=== PATIENT | male | born 1995 | race Caucasian/White ===

== ENCOUNTER 2022-02-24 14:16 | Emergency (ER) | payer BC, SELFPAY ==
[2022-02-24 14:17] VITALS: BP 151/81; PULSE 66; RESP 18; TEMP 36.9; O2SAT 98; BMI 21.7
--- NOTE | 2022-02-24 14:36 | NURSING ---
NO OLD EKGS
--- NOTE | 2022-02-24 14:55 | EKG12_ITS ---
Test Reason : CP Blood Pressure : / mmHG Vent. Rate : 061 BPM Atrial Rate : 061 BPM P-R Int : 134 ms QRS Dur : 094 ms QT Int : 392 ms P-R-T Axes : -35 064 057 degrees QTc Int : 394 ms Unusual P axis, possible ectopic atrial rhythm Abnormal ECG Confirmed by MEDHAT MUNIZ, FARHAN ([id number]), editorial clerk REGIS CHRISTIANSON ([id number]) on 02/25/2022 8:53:10 AM Referred By: TADEO Confirmed By:FARHAN MELÉNDEZ MD
--- NOTE | 2022-02-24 14:59 | RAD_ITS ---
STUDY: X-RAY CHEST REASON FOR EXAM: Male, 26 years old. Chest pain TECHNIQUE: Single AP portable view of the chest. COMPARISON: None. FINDINGS: EKG electrodes are seen. The lungs are clear and expanded. There is no demonstrated pleural abnormality. Normal size heart. Normal mediastinum and marlys. Normal visualized pulmonary arteries. Normal visualized aortic arch and descending thoracic aorta. Normal visualized thoracic spine. Normal visualized ribs, clavicles, and shoulders. There is no demonstrated abnormality of the visualized soft tissue structures of the upper abdomen. RAD/Chest 1 View (Portable) IMPRESSION: Normal x-ray examination of the chest. Electronically Signed: Landon Duran MD at 15:21 EDT ,
[2022-02-24] MEDS: 0.9% Normal Saline 1,000 ML 150 ML IV (15:03)
[2022-02-24] MEDS: Ketorolac 30 MG/ML Syringe IV (15:03)
[2022-02-24 15:09] LABS: Absolute Neutrophil Count 2.4 X10^3/uL (2.0-7.7); Basophil# 0.02 X10^3/uL; Basophil% 0.5 % (0-1); Eosinophil# 0.11 X10^3/uL; Eosinophils% 2.8 % (0-5); Hematocrit 39.4 % (40-54); Hemoglobin 14.3 g/dL (13.0-16.5); Lymphocyte % 27.7 % (19-41); Mean Corp Hgb Conc 36.3 g/dL (32-36); Mean Corpuscular Volume 79.9 fL (80-94); Mean Platelet Vol. 9.9 fl (6.2-12.0); Monocyte# 0.27 X10^3/uL; Monocyte% 6.8 % (0-10); NRBC Flagged by Analyzer 0 % (0-5); Neutrophil # 2.44 X10^3/uL (2.7-7.7); Neutrophil % 61.4 % (47-70); Platelet Count 202 K/mm3 (150-450); RBC Distribution Width CV 12.7 % (11.6-14.6); Red Blood Count 4.93 M/mm3 (4.6-6.2)
[2022-02-24 15:21] VITALS: BP 125/71; PULSE 63; RESP 16; O2SAT 98
[2022-02-24 15:26] LABS: Anion Gap 8 (5-15); BUN 14 mg/dL (7-18); BUN/Creat Ratio 14.3 RATIO (10-20); Chloride 106 mmol/L (98-107); Creatinine, Serum 0.98 mg/dL (0.70-1.30); EST Glomerular Filtration Rate 99 mL/min (>60); Est Glom Filt Rate - Afr Amer 120 mL/min (>60); Estimated Creatinine Clearance 119.31 ml/min; Glucose 130 mg/dL (74-106); Potassium 3.6 mmol/L (3.5-5.1); Sodium Level 138 mmol/L (136-145); Troponin-I HS 3 pg/mL (3.0-78.0)
--- NOTE | 2022-02-24 15:40 | ED.VIS.CHEST ---
HPI History of Present Illness Chief Complaint: Chest Pain Informant: patient Onset/Context/Timing Onset: Today Activity at onset: sudden Quality: Positive for Stabbing Location: - (Diffusely over chest) Current Severity: Mild Maximum Severity: Moderate Associated Symptoms: Positive for Dyspnea Narrative Prior Similar Symptoms: No PE Risk Factors: Negative for Recent Travel/Surgery, Recent Immobilization, Prior DVT or PE and Cancer PFSH PFSH Medical History no medical history no medical history Home Medications NK 02/24/22 [History Last Taken Unknown] Allergy/AdvReac Type Severity Reaction Status Date / Time No Known Allergies Allergy Verified 02/24/22 14:20 Surgical History no surgical history Social History Smoking Status: Never smoker ROS ROS ED Constitutional Constitutional ED: Denies chills or fever(s) Eyes Eyes: Denies change in vision ENT ENT ED: Denies sore throat Cardiovascular Cardiovascular: Reports chest pain Respiratory/Chest Respiratory/Chest: Reports dyspnea; Denies cough Gastrointestinal Gastrointestinal: Denies abdominal pain, nausea or vomiting Musculoskeletal Musculoskeletal: Denies back pain or neck pain Integumentary Denies rash Neurologic Neurologic: Denies headache(s) or weakness Allergic/Immunologic Allergic/Immunologic ED: Denies urticaria EXAM Physical Exam Const Vital Signs: 02/24/22 14:17 02/24/22 15:21 02/24/22 16:07 Temperature 98.4 F Temperature Source Oral Pulse Rate 66 63 64 Respiratory Rate 18 16 16 Blood Pressure 151/81 H 125/71 H 130/51 H Blood Pressure Mean 104 89 77 Pulse Ox 98 98 99 Oxygen Delivery Method Room Air Room Air Room Air Positive well nourished and well developed General Appearance ED: well developed HEENT normocephalic and atraumatic Eyes PERRL and EOMs intact bilaterally Chest Wall inspection of chest normal and palpation of chest normal Resp normal respiratory effort Effort and Inspection: respiratory distress Cardio regular rate and regular rhythm GI soft to palpation and non-tender Extremity normal to inspection Neuro oriented x3 Sensorium / Orientation: awake and alert Psych mental status grossly normal Skin no rashes or lesions noted Heart Score History: Slightly/Non-Suspicious ECG: Normal Age: </= 45 years Risk Factors: No Risk Factors Troponin: </= Normal Limit Score: 0 MDM MDM MDM Narrative Medical decision making narrative: Patient placed on director of cardiac rehabilitation. EKG, chest x-ray, lab work obtained. Lab Data Attestation: I reviewed the patient's lab results. Labs: Laboratory Results - last 24 hr 02/24/22 02/24/22 02/24/22 14:30 14:55 15:50 WBC 4.0 L RBC 4.93 Hgb 14.3 Hct 39.4 L MCV 79.9 L MCH 29.0 MCHC 36.3 H RDW Std Deviation 36.0 RDW Coeff of Len 12.7 Plt Count 202 MPV 9.9 Immature Gran % (Auto) 0.800 Neut % (Auto) 61.4 Lymph % (Auto) 27.7 Terry % (Auto) 6.8 Eos % (Auto) 2.8 Baso % (Auto) 0.5 Absolute Neuts (auto) 2.4 Absolute Lymphs (auto) 1.10 Nucleated RBC % 0 D-Dimer Quant (PE/DVT) < 0.27 L Sodium 138 Potassium 3.6 Chloride 106 Carbon Dioxide 24.0 Anion Gap 8 BUN 14 Creatinine 0.98 Estim Creat Clear Calc 119.31 Est GFR (MDRD) Af Amer 120 Est GFR (MDRD) Non-Af 99 BUN/Creatinine Ratio 14.3 Glucose 130 H Calcium 9.0 Troponin I High Sens 3 Radiography Chest X-Ray - ED: 1 View, Read by ED Physician, Normal, Heart, Lungs and Mediastinum Diagnostic Testing: Clinical Impression(s) from Imaging Studies Chest X-Ray 02/24/22 14:59 IMPRESSION: Normal x-ray examination of the chest. Electronically Signed: Landon Duran MD at 15:21 EDT , EKG Initial EKG: Attestation: I personally reviewed and interpreted this EKG as follows: Interpretation: Sinus Rhythm (Sinus at 61. No acute ischemia.) Treatment and Re-Evaluation Narrative: Patient was lying at rest with onset of pain. Chest x-ray reveals no evidence of pneumothorax or acute finding. EKG reveals no ischemia. Lab work normal including troponin and D-dimer. Patient was treated with Toradol for pain. Test results discussed with him. At this time patient will be discharged home to continue supportive care. Return instructions provided. Discharge Plan Triage Chief Complaint: Chest Pain ED Provider: Lorie Tang Dx/Rx/DC Orders Clinical Impression: Atypical chest pain Instructions: ED Chest Pain, Noncardiac Prescriptions: No Action NK RF: 0 Primary Care Provider: Care Physician,No Primary Referrals: Tameka Donahue MD [STAFF PHYSICIAN] - 1-2 Weeks Care Physician,No Primary [Primary Care Provider] - Disposition Disposition: Home, Self Care
[2022-02-24 16:07] VITALS: BP 130/51; PULSE 64; RESP 16; O2SAT 99
--- NOTE | 2022-02-24 16:09 | CM.ED ---
SW Note Referral Source: Case Find Referral Reason: No PCP SW noted patient had no PCP. SW provided patient with [facility] Directory and encouraged them to follow up for a PCP. No other issues or questions voiced. SW remains available if needs arise. Plan: Resources provided Mela RIVERA
[2022-02-24 16:32] LABS: D-Dimer Quantitative (DVT/PE) < 0.27 FEU/ug/m (0.27-0.49)
== END 2022-02-24 16:52 | disposition home or self-care (01) ==
PROVIDERS: Emergency Provider Emergency Medicine; Visit Provider Emergency Medicine
DX: R07.89 Other chest pain (principal); R06.00 Dyspnea, unspecified
CPT/HCPCS: 71045; 80048; 84484; 85025; 85379; 93005; 96361; 96374; 99282; A4216

== ENCOUNTER 2024-07-01 23:23 | Emergency (ER) | payer BC, SELFPAY ==
[2024-07-01 23:23] VITALS: BP 156/84; PULSE 85; RESP 19; TEMP 37.1; O2SAT 97
--- NOTE | 2024-07-01 23:51 | EKG12_ITS ---
Test Reason : CP Blood Pressure : / mmHG Vent. Rate : 074 BPM Atrial Rate : 074 BPM P-R Int : 142 ms QRS Dur : 090 ms QT Int : 384 ms P-R-T Axes : -26 036 043 degrees QTc Int : 426 ms Normal sinus rhythm Normal ECG Confirmed by Carlitos Subramanian ([id number]), editor index KIRK MEDINA ([id number]) on 07/03/2024 9:37:59 AM Referred By: JASMINA Confirmed By:Carlitos Subramanian
--- NOTE | 2024-07-01 23:59 | RAD_ITS ---
EXAM: XR CHEST, 2 VIEWS CLINICAL INDICATION: chest pain TECHNIQUE: Frontal and lateral views of the chest. COMPARISON: 02/24/2022. FINDINGS: LUNGS AND PLEURAL SPACES: Unremarkable. No consolidation or edema. No pneumothorax. No effusion. HEART: Unremarkable. Cardiac silhouette not enlarged. MEDIASTINUM: Central airways and mediastinal contour are unremarkable. BONES/JOINTS: Unremarkable. No acute fracture. SOFT TISSUES: Unremarkable. RAD/Chest PA and Lateral IMPRESSION: No acute cardiopulmonary abnormality. Electronically Signed: Carlitos Camilo MD at 0:16 EDT ,
[2024-07-02] MEDS: Ipratropium/Albuterol Sulfate 3 ML AMPUL.NEB INHALATION (00:12)
[2024-07-02] MEDS: dexAMETHasone 10 MG/ML Vial PO.IVFORM (00:12)
[2024-07-02 00:14] VITALS: PULSE 73; RESP 14
--- NOTE | 2024-07-02 00:50 | EX.ED.DYSGE1 ---
HPI History of Present Illness Chief Complaint: Chest Pain Informant: patient Narrative Narrative: Patient is a 29-year-old male who states he has had recurrent chest pain for the past 5 years and he has been told is been secondary to pleurisy or bronchospasm. He reports he was at work this evening when he began to feel chest tightness. He states that he does not believe he had been exposed to any type of new irritant or chemical. He states that there is no family history of cardiac disease at a young age he denies any recent travel surgery or history of DVT/PE and he denies any illicit drug use. However he states that the symptoms of chest tightness were not improving while at work so therefore he presents to the ER for evaluation. Of note the patient does state that after arriving to the ER the symptoms have begun to improve spontaneously [facility] Medical History (Updated 07/02/24 @ 00:[address] Ang Singh, DO) Pleurisy Home Medications ?Medication ?Instructions ?Recorded ?Last Taken ?Type albuterol sulfate 90 mcg/actuation 2 puff inhalation Q4H PRN PRN 07/02/24 Unknown Rx aerosol inhaler (Ventolin HFA) Wheezing/SOB #1 device prednisone 20 mg tablet 40 mg (2 x 20 mg) PO DAILY 5 days 07/02/24 Unknown Rx #10 tabs Allergy/AdvReac Type Severity Reaction Status Date / Time No Known Allergies Allergy Verified 07/01/24 23:25 Social History Smoking Status: Never smoker ROS ROS ED Constitutional Constitutional ED: Denies chills or fever(s) Eyes Eyes: Denies blurry vision or change in vision ENT ENT ED: Denies sore throat Cardiovascular Cardiovascular: Reports chest pain; Denies palpitations or racing heartbeat Respiratory/Chest Respiratory/Chest: Denies cough or dyspnea Gastrointestinal Gastrointestinal: Denies abdominal pain, diarrhea, nausea or vomiting Genitourinary Genitourinary ED: Denies dysuria Musculoskeletal Musculoskeletal: Denies back pain or myalgias Integumentary Denies rash Neurologic Neurologic: Denies headache(s) Hematologic/Lymphatic Hematologic/Lymphatic: Denies easy bleeding or easy bruising Allergic/Immunologic Allergic/Immunologic ED: Denies mouth swelling or tongue swelling EXAM Physical Exam Const Vital Signs: 07/01/24 23:23 10/12/24 23:26 07/02/24 00:14 Temperature 98.8 F Temperature Source Oral Pulse Rate 85 73 Respiratory Rate 19 H 14 Respiratory Effort Normal Non-Labored Respiratory Pattern Normal Blood Pressure 156/84 H Blood Pressure Mean 108 Pulse Ox 97 Oxygen Delivery Method Room Air 07/02/24 01:12 Temperature 98.7 F Temperature Source Pulse Rate 83 Respiratory Rate 20 H Respiratory Effort Respiratory Pattern Blood Pressure 126/84 H Blood Pressure Mean 98 Pulse Ox 98 Oxygen Delivery Method Positive well nourished and well developed General Appearance ED: well developed; Negative for pallor HEENT HEENT Narrative: No tongue or lip swelling no oral lesions no airway edema or compromise No secondary findings in the posterior pharynx to suggest infection Eyes PERRL and EOMs intact bilaterally General Eye ED: Negative for scleral icterus Neck supple and no JVD Chest Wall palpation of chest normal Chest Narrative: No bony deformity or crepitance Resp normal respiratory effort Resp Narrative: Breath sounds are diminished throughout with faint expiratory wheeze in the bilateral bases but no nasal flaring retractions tachypnea or accessory muscle use Cardio regular rate and regular rhythm Rate: other Other Details: Heart is regular rate and rhythm without murmurs rubs or gallops Radial and carotid pulses are equal and symmetric GI normal to inspection, nondistended, normoactive bowel sounds, non-tender, non-distended and no masses Auscultation: normoactive bowel sounds Palpation: soft Extremity normal to inspection Extremity Narrative: No asymmetric edema no pitting edema negative Homans' sign bilaterally Neuro oriented x3, CN's II-XII intact bilaterally and no sensory deficits noted Sensorium / Orientation: alert Motor Exam: strength 5/5 throughout Psych mental status grossly normal Skin no rashes or lesions noted General Skin Exam: Negative for jaundice or pallor MDM MDM MDM Narrative Medical decision making narrative: Patient arrived to the ER slightly hypertensive but otherwise with stable vitals. He reported a longstanding history of recurrent chest discomfort. He denies any family history of cardiac disease at a young age he denied any excessive stimulant use/illicit drug use that could precipitate cardiovascular disease at a young age and he reports there is no recent surgery or travel or concern for DVT/PE. With the patient reporting spontaneous improvement after leaving work there is concern this could be bronchospasm or pneumonitis from potential chemical exposure. He was given Decadron orally as well as a DuoNeb breathing treatment. On reevaluation he does report feeling better and his breath sounds have improved. There is concern this could be due to the spontaneous pneumothorax or pneumonia so a chest x-ray was ordered. There is also revealed no signs of acute lung pathology. Therefore this time his EKG shows sinus rhythm without ischemic or dysrhythmia changes x-ray reveals no acute lung pathology and patient had improvement of symptoms I feel this is most likely bronchospasm and/or pneumonitis from potential chemical exposure at work. As he is low risk for DVT/PE and cardiovascular disease there is no need for further workup and he is otherwise safe for discharge History & Record Review Discussion w/independent historian: Patient Radiography Diagnostic Testing: Clinical Impression(s) from Imaging Studies Chest X-Ray 07/01/24 23:59 IMPRESSION: No acute cardiopulmonary abnormality. Electronically Signed: Carlitos Camilo MD at 0:16 EDT , 2 view chest x-ray as interpreted by the emergency medicine physician reveals no acute infiltrate pneumothorax pleural effusion or widening the mediastinum Discharge Plan Triage Chief Complaint: Chest Pain ED Provider: Ang Singh Dx/Rx/DC Orders Clinical Impression: Pneumonitis, Acute bronchospasm Instructions: ED Bronchospasm (Adult), ED Chest Pain, Uncertain Cause Prescriptions: New prednisone 20 mg tablet 40 mg PO DAILY 5 Days Qty: 10 0RF albuterol sulfate [Ventolin HFA] 90 mcg/actuation HFA aerosol inhaler 2 puff inhalation Q4H PRN PRN (Reason: Wheezing/SOB) Qty: 1 0RF Stand Alone Forms: Work / School Excuse Primary Care Provider: Care Physician,No Primary Referrals: Andrei Meier MD [Med Staff - Active Staff] - Care Physician,No Primary [Primary Care Provider] - Print Language: Tunisian Disposition Disposition: Home, Self Care Discharge Date/Time: 07/02/24 01:12
[2024-07-02 01:12] VITALS: BP 126/84; PULSE 83; RESP 20; TEMP 37.1; O2SAT 98
== END 2024-07-02 01:12 | disposition home or self-care (01) ==
PROVIDERS: Emergency Provider Emergency Medicine; Visit Provider Emergency Medicine
DX: J18.9 Pneumonia, unspecified organism (principal); J98.01 Acute bronchospasm
CPT/HCPCS: 71046; 93005; 94640; 99282